=== PATIENT | male | born 1945 | race Caucasian/White ===

== ENCOUNTER 2016-02-26 12:19 | Emergency (ER) | payer MEDICARE, BC ==
[~2016-02-26 12:19] MED LIST: /FENT50PA TD; /GLYB5TA OR; ASPI1TAB PO; ATRO1OPD OD; BACT2OIN2 TOP; COLA100C2 PO; ELIQ2.5T PO; FLEC10TA PO; FLEXERIL PO; GABA300C3 PO; GLUC1000 OR; GLYB5TA PO; JARD1TAB PO; LISI10TA4 OR; LISI10TA4 PO; LOPR50TA PO; LYRI150C PO; MAXI0.1S4 OD; MELO15TA4 PO; METF1000 PO; PERC5TAB8 PO; SIMV20TA2 OR; SIMV20TA2 PO; VALA1TAB PO; VICT18IN SC; VIT D 2000 PO; VITA-121 PO; januvia PO
[2016-02-26 13:39] LABS: MEAN CORPUSCULAR HEMOGLOBIN 30.2 pg (27.0-33.0); RED CELL DISTRIBUTION WIDTH 12.4 % (11.5-14.5); WHITE BLOOD COUNT 7.8 K/mm3 (4.0-10.0)
[2016-02-26 13:53] LABS: ANION GAP 7 MEQ/L (8-16); BLOOD UREA NITROGEN 22 MG/DL (7-18); CALCIUM LEVEL 9.4 MG/DL (8.8-10.2); CARBON DIOXIDE LEVEL 30 MEQ/L (21-32); CHLORIDE LEVEL 104 MEQ/L (98-107); CREATININE FOR GFR 1.07 MG/DL (0.70-1.30); GLOMERULAR FILTRATION RATE > 60.0 (>49); GLUCOSE, FASTING 128 MG/DL (80-110); POTASSIUM SERUM 4.7 MEQ/L (3.5-5.1); SODIUM LEVEL 141 MEQ/L (136-145)
--- NOTE | 2016-02-26 14:25 | EDDOCDS ---
Physician Documentation [facility] Name: iVc Mckeon Age: 70 yrs Sex: Male : 1945 Arrival Date: 02/26/2016 Time: 12:19 Bed 21 Private MD: Swati Ratliff A Disposition: 02/25 14:03 I have independently interviewed and examined the patient, and I agree with the sd1 investigation, diagnosis and treatment plan as documented by the Resident. Disposition: 02/26/16 14:13 Discharged to Home/Self Care. Impression: Syncope and collapse - Vasovagal syncope. - Condition is Stable. - Discharge Instructions: Near-Syncope. - Medication Reconciliation, Local Pharmacy Hours form. - Follow up: Swati Ratliff; When: Call to arrange an appointment; Reason: Recheck today's complaints, Continuance of care. - Problem is new. - Symptoms have improved. Historical: - Allergies: no known allergies; - Home Meds: 1. aspirin 81 mg Oral tab 1 tab once daily (Last dose: 02/25/2016) 2. Eliquis oral 1 tab 2 times per day (Last dose: 02/26/2016) 3. glyburide 5 mg Oral tab 2.5 mg nightly (Last dose: 02/25/2016) 4. metformin 1,000 mg Oral tab 1 tab 2 times per day (Last dose: 02/26/2016) 5. Vitamin D Oral 1000 unit daily (Last dose: 02/26/2016) 6. Victoza 3-Alban 18mg/3ml subcutaneous pnij 0.3 mL once daily 7. simvastatin 40 mg Oral tab 1 tab once daily (Last dose: 02/26/2016) 8. Jardiance 10 mg oral tab 1 tab once daily (Last dose: 02/26/2016) - PMHx: atrial flutter; Diabetes - NIDDM: controlled; Hypercholesterolemia; Hypertension; - PSHx: right wrist surgery; Ablation, Cardiac; - Social history: Smoking status: Patient states former smoker of tobacco. No barriers to communication noted, The patient speaks fluent Estonian, Speaks appropriately for age. - Family history: Not pertinent. - : The pt / caregiver states he / she is on anticoagulants: Eliquis Home medication list is obtained from the patient. - Exposure Risk Screening:: None identified. Vital Signs: 12:29 BP 133 / 68; Pulse 61; Resp 18; Temp 97.3(O); Pulse Ox 96% on R/A; Weight 104.33 kg / ct3 230.01 lbs (R); Height 5 ft. 8 in. (172.72 cm) (R); Pain 0/10; 12:29 BP 124 / 85; Pulse 60; Resp 18; Temp 97.8; Pulse Ox 98% ; Pain 0/10; hs1 12:29 Body Mass Index 34.97 (104.33 kg, 172.72 cm) ct3 MDM: 12:32 ECG WITH READING ER PHYS+CARDIAG ordered. EDMS 13:15 IV Saline Lock ordered. bs6 13:16 CBC Ordered. EDMS 13:16 Basic Metabolic Profile Ordered. EDMS 13:57 Basic Metabolic Profile Reviewed. sd1 13:57 CBC Reviewed. sd1 14:01 ED course: 70 yo male with multiple comorbidities presented s/p near syncope with sd1 symptoms orf nausea and lightheadedness and warm sensation while euthenizing his cat patient denied chest pain, db, abdominal pain, reports has been in baseline state of health no associated neuro symptoms exam unremarkable d/w patient prolonged monitoring and cardiac rule out though lower suspicion - patient refuses - states would like to go home is at baseline feels well understands risks. Signatures: Dispatcher [employer] EDMS Kait Hinojosa MD MD sd1 Aure Young RN RN hs1 Thea Martinez, DO bs6 The chart was reviewed and I authenticate all verbal orders and agree with the evaluation and treatment provided.Corrections: (The following items were deleted from the chart) 12:46 12:34 ECG WITH READING ER PHYS+CARDIAG ordered. EDMS EDMS MTDD
--- NOTE | 2016-02-26 14:25 | EDDOCDS ---
Nurse's Notes [facility] Name: Vic Mckeon Age: 70 yrs Sex: Male : 1945 Arrival Date: 02/26/2016 Time: 12:19 Bed 21 Private MD: Swati Ratliff A Diagnosis: Syncope and collapse-Vasovagal syncope Presentation: 02/25 12:22 Presenting complaint: EMS states: syncopal episode after watching cat be euthanized. Pt hs1 diabetic and was told by [facility] to take glucose pill and EMS did finger stick 223 mg/dL. Pt states got all hot and flushed and felt overheated. Pt also states has happened before when overheated. Acute neurological deficits are not present. Patient denies the presence of acute pain prior to syncopal episode. The patient is not diaphoretic or experienced diaphoresis prior to the syncopal episode The patient denies shortness of breath. The patient denies recent surgery. Adult Sepsis Screening: The patient does not have new or worsening altered mentation. Patient's respiratory rate is less than 22. Systolic blood pressure is greater than 100. Patient has a qSOFA score of 0- Negative Sepsis Screen. Suicide/Homicide risk assessment- the patient denies having any suicidal and/or homicidal ideations and does not present with any other emotional, behavioral or mental health complaints. Status: Patient is not a assistant service manager or dependent. Transition of care: patient was not received from another setting of care. 12:22 Acuity: RONNI Level 3 hs1 12:22 Method Of Arrival: Ambulance hs1 Triage Assessment: 12:33 General: Appears in no apparent distress, Behavior is appropriate for age, cooperative. hs1 Pain: Denies pain. Neurological: Level of Consciousness is awake, alert, obeys commands, Oriented to person, place, time, Credit Collections Specialist are equal bilaterally Moves all extremities. Gait is steady, Speech is normal, Facial symmetry appears normal. Cardiovascular: Rhythm is sinus rhythm. Respiratory: Airway is patent Respiratory effort is even, unlabored, Respiratory pattern is regular, symmetrical. GI: Abdomen is flat, non- distended Denies nausea. : No deficits noted. Derm: Skin is pink, warm & dry. normal. Injury Description: No known injury. Historical: - Allergies: no known allergies; - Home Meds: 1. aspirin 81 mg Oral tab 1 tab once daily (Last dose: 02/25/2016) 2. Eliquis oral 1 tab 2 times per day (Last dose: 02/26/2016) 3. glyburide 5 mg Oral tab 2.5 mg nightly (Last dose: 02/25/2016) 4. metformin 1,000 mg Oral tab 1 tab 2 times per day (Last dose: 02/26/2016) 5. Vitamin D Oral 1000 unit daily (Last dose: 02/26/2016) 6. Victoza 3-Alban 18mg/3ml subcutaneous pnij 0.3 mL once daily 7. simvastatin 40 mg Oral tab 1 tab once daily (Last dose: 02/26/2016) 8. Jardiance 10 mg oral tab 1 tab once daily (Last dose: 02/26/2016) - PMHx: atrial flutter; Diabetes - NIDDM: controlled; Hypercholesterolemia; Hypertension; - PSHx: right wrist surgery; Ablation, Cardiac; - Social history: Smoking status: Patient states former smoker of tobacco. No barriers to communication noted, The patient speaks fluent Persian, Speaks appropriately for age. - Family history: Not pertinent. - : The pt / caregiver states he / she is on anticoagulants: Eliquis Home medication list is obtained from the patient. - Exposure Risk Screening:: None identified. Screenin:34 Screening information is obtained from the patient. Fall risk: No risks identified. hs1 Assistance ADL's: requires no assistance with activities of daily living. Abuse/DV Screen: The patient / caregiver reports he/she is: not in a situation that causes fear, pain or injury. Nutritional screening: No deficits noted. Advance Directives: There is no active DNR order. home support is adequate. Assessment: 13:17 General: Appears in no apparent distress, comfortable, Behavior is appropriate for age, hs1 cooperative. Neurological: Level of Consciousness is awake, alert, obeys commands, Oriented to person, place, time. Cardiovascular: Rhythm is sinus rhythm No ectopy. Chest pain is denied. Respiratory: Airway is patent Respiratory effort is even, unlabored, Respiratory pattern is regular, symmetrical. GI: No deficits noted. Vital Signs: 12:29 BP 133 / 68; Pulse 61; Resp 18; Temp 97.3(O); Pulse Ox 96% on R/A; Weight 104.33 kg ct3 (R); Height 5 ft. 8 in. (172.72 cm) (R); Pain 0/10; 12:29 BP 124 / 85; Pulse 60; Resp 18; Temp 97.8; Pulse Ox 98% ; Pain 0/10; hs1 12:29 Body Mass Index 34.97 (104.33 kg, 172.72 cm) ct3 Vitals: 14:23 Glucose Measurement D-stick done by EMS. hs1 14:24 Log In Time N/A - ambulance arrival. hs1 ED Course: 12:20 Patient visited by Donna Darden, Body Technician/Painter. lbd 12:20 Swati Ratliff is Private Physician. lbd 12:20 Patient moved to Waiting lbd 12:21 Patient moved to 21 lbd 12:25 Triage Initiated hs1 12:29 Patient has correct armband on for positive identification. Placed in gown. Bed in low ct3 position. Call light in reach. Side rails up X 1. athletic monitor on. Pulse ox on. NIBP on. 12:30 Patient visited by Dotty Logan PCA. ct3 12:39 EKG done. (by ED staff). Reviewed by Kait Hinojosa MD. ct3 12:58 Thea Martinez DO is PHCP. bs6 12:58 Kait Hinojosa MD is Attending Physician. bs6 13:02 Patient visited by Thea Martinez DO. bs6 13:02 Patient visited by Thea Martinez DO. bs6 13:20 Inserted saline lock: 20 gauge in left antecubital area and blood collected. The hs1 patient tolerated the procedure well. 13:31 Basic Metabolic Profile Sent. hs1 13:31 CBC Sent. hs1 13:37 Patient visited by Arue Young RN. hs1 14:13 Swati Ratliff is Referral Physician. bs6 14:23 Discontinued IV lock intact, bleeding controlled, pressure dressing applied, No hs1 redness/swelling at site. No procedures done that require assistance. 14:24 The patient / caregiver is instructed regarding the plan of care and ED course. hs1 Order Results: Lab Order: CBC; SPEC'M 02/26/16 13:26 Test: WHITE BLOOD COUNT; Value: 7.8; Range: 4.0-10.0; Units: K/mm3; Status: F Test: RED BLOOD COUNT; Value: 5.33; Range: 4.30-6.10; Units: M/mm3; Status: F Test: HEMOGLOBIN; Value: 16.1; Range: 14.0-18.0; Units: g/dl; Status: F Test: HEMATOCRIT; Value: 47.5; Range: 42.0-52.0; Units: %; Status: F Test: MEAN CORPUSCULAR VOLUME; Value: 89.0; Range: 80.0-96.0; Units: fl; Status: F Test: MEAN CORPUSCULAR HEMOGLOBIN; Value: 30.2; Range: 27.0-33.0; Units: pg; Status: F Test: MEAN CORPUSCULAR HGB CONC; Value: 34.0; Range: 32.0-36.5; Units: g/dl; Status: F Test: RED CELL DISTRIBUTION WIDTH; Value: 12.4; Range: 11.5-14.5; Units: %; Status: F Test: PLATELET COUNT, AUTOMATED; Value: 246; Range: 150-450; Units: k/mm3; Status: F Lab Order: Basic Metabolic Profile; [facility]' 02/26/16 13:26 Test: GLUCOSE, FASTING; Value: 128; Range: 80-110; Abnormal: Above high normal; Units: MG/DL; Status: F Test: BLOOD UREA NITROGEN; Value: 22; Range: 7-18; Abnormal: Above high normal; Units: MG/DL; Status: F Test: CREATININE FOR GFR; Value: 1.07; Range: 0.70-1.30; Units: MG/DL; Status: F Test: GLOMERULAR FILTRATION RATE; Value: > 60.0; Range: >49; Status: F Test: SODIUM LEVEL; Value: 141; Range: 136-145; Units: MEQ/L; Status: F Test: POTASSIUM SERUM; Value: 4.7; Range: 3.5-5.1; Units: MEQ/L; Status: F Test: CHLORIDE LEVEL; Value: 104; Range: 98-107; Units: MEQ/L; Status: F Test: CARBON DIOXIDE LEVEL; Value: 30; Range: 21-32; Units: MEQ/L; Status: F Test: ANION GAP; Value: 7; Range: 8-16; Abnormal: Below low normal; Units: MEQ/L; Status: F Test: CALCIUM LEVEL; Value: 9.4; Range: 8.8-10.2; Units: MG/DL; Status: F Test Note: ; Units are mL/min/1.73 m2 Chronic Kidney Disease Staging per NKF: Stage I & II GFR >=60 Normal to Mildly Decreased Stage III GFR 30-59 Moderately Decreased Stage IV GFR 15-29 Severely Decreased Stage V GFR <15 Very Little GFR Left ESRD GFR <15 on DOPE WEIGH OPERATOR Outcome: 14:13 Discharge ordered by Provider. bs6 14:23 Discharge Assessment: Patient awake, alert and oriented x 3. No cognitive and/or hs1 functional deficits noted. Patient verbalized understanding of disposition instructions. patient administered narcotics - no. The following High Risk Discharge criteria are identified: None. Discharged to home ambulatory. Condition: stable. Discharge instructions given to patient, Instructed on discharge instructions, follow up and referral plans. medication usage, Demonstrated understanding of instructions, medications, Pt was receptive of discharge instructions/ teaching. No special radiology studies were completed. Property sent home with patient. 14:24 Patient left the ED. hs1 Signatures: Donna Darden, Body Technician/Painter Unit lbd Aure Young RN RN hs1 Dotty Logan, REGISTERED NURSE FETAL REGISTERED NURSE FETAL ct3 Thea Martinez, DO bs6 MTDD
--- NOTE | 2016-02-27 19:40 | ECGEPIP ---
Stationary ECG Study [facility] - ED Test Date: 2016-02-26 Pat Name: MIAH HERNANDEZ Department: Room: - Gender: M Vice Chair: ct : 1945 Requested By: Kait Hinojosa Order Number: [id number] Reading MD: Kait Hinojosa Measurements Intervals [place] Rate: 62 P: 43 OK: 343 QRS: 37 QRSD: 95 T: 9 QT: 397 QTc: 404 Interpretive Statements SINUS RHYTHM WITH FIRST DEGREE AV BLOCK NSTTW ABNORMALITY Electronically Signed On 02-27-2016 19:40:16 EST by Kait Hinojosa
--- NOTE | 2016-02-28 15:25 | EDDOCDS ---
Physician Documentation [facility] Name: Vic Mckeon Age: 70 yrs Sex: Male : 1945 Arrival Date: 02/26/2016 Time: 12:19 Bed 21 Private MD: Swati Ratliff A Disposition: 02/25 14:03 I have independently interviewed and examined the patient, and I agree with the sd1 investigation, diagnosis and treatment plan as documented by the Resident. Disposition: 02/26/16 14:13 Discharged to Home/Self Care. Impression: Syncope and collapse - Vasovagal syncope. - Condition is Stable. - Discharge Instructions: Near-Syncope. - Medication Reconciliation, Local Pharmacy Hours form. - Follow up: Swati Ratliff; When: Call to arrange an appointment; Reason: Recheck today's complaints, Continuance of care. - Problem is new. - Symptoms have improved. Historical: - Allergies: no known allergies; - Home Meds: 1. aspirin 81 mg Oral tab 1 tab once daily (Last dose: 02/25/2016) 2. Eliquis oral 1 tab 2 times per day (Last dose: 02/26/2016) 3. glyburide 5 mg Oral tab 2.5 mg nightly (Last dose: 02/25/2016) 4. metformin 1,000 mg Oral tab 1 tab 2 times per day (Last dose: 02/26/2016) 5. Vitamin D Oral 1000 unit daily (Last dose: 02/26/2016) 6. Victoza 3-Alban 18mg/3ml subcutaneous pnij 0.3 mL once daily 7. simvastatin 40 mg Oral tab 1 tab once daily (Last dose: 02/26/2016) 8. Jardiance 10 mg oral tab 1 tab once daily (Last dose: 02/26/2016) - PMHx: atrial flutter; Diabetes - NIDDM: controlled; Hypercholesterolemia; Hypertension; - PSHx: right wrist surgery; Ablation, Cardiac; - Social history: Smoking status: Patient states former smoker of tobacco. No barriers to communication noted, The patient speaks fluent Montenegrin, Speaks appropriately for age. - Family history: Not pertinent. - : The pt / caregiver states he / she is on anticoagulants: Eliquis Home medication list is obtained from the patient. - Exposure Risk Screening:: None identified. Vital Signs: 12:29 BP 133 / 68; Pulse 61; Resp 18; Temp 97.3(O); Pulse Ox 96% on R/A; Weight 104.33 kg / ct3 230.01 lbs (R); Height 5 ft. 8 in. (172.72 cm) (R); Pain 0/10; 12:29 BP 124 / 85; Pulse 60; Resp 18; Temp 97.8; Pulse Ox 98% ; Pain 0/10; hs1 12:29 Body Mass Index 34.97 (104.33 kg, 172.72 cm) ct3 MDM: 12:32 ECG WITH READING ER PHYS+CARDIAG ordered. EDMS 13:15 IV Saline Lock ordered. bs6 13:16 CBC Ordered. EDMS 13:16 Basic Metabolic Profile Ordered. EDMS 13:57 Basic Metabolic Profile Reviewed. sd1 13:57 CBC Reviewed. sd1 14:01 ED course: 70 yo male with multiple comorbidities presented s/p near syncope with sd1 symptoms orf nausea and lightheadedness and warm sensation while euthenizing his cat patient denied chest pain, db, abdominal pain, reports has been in baseline state of health no associated neuro symptoms exam unremarkable d/w patient prolonged monitoring and cardiac rule out though lower suspicion - patient refuses - states would like to go home is at baseline feels well understands risks. 14:59 [facility] Payment Agreement was scanned into [email or web address] and attached to record. mm15 15:00 Financial registration complete. mm15 02/26 12:37 T-Sheet-- Draft Copy was scanned into [employer] [place] and attached to record. gb 12:37 ECG/EKG was scanned into [email or web address] and attached to record. gb Signatures: Dispatcher [employer] EDMS Kait Hinojosa MD MD sd1 Tahira Sandoval, Reg Reg gb Aure Young, EL RN hs1 Jennifer Vale mm15 Thea Martinez DO DO bs6 The chart was reviewed and I authenticate all verbal orders and agree with the evaluation and treatment provided.Corrections: (The following items were deleted from the chart) 02/25 12:46 12:34 ECG WITH READING ER PHYS+CARDIAG ordered. EDMS EDMS Attachments: 14:59 [facility] Payment Agreement mm15 02/26 12:37 T-Sheet-- Draft Copy gb 12:37 ECG/EKG gb Chart Complete MTDD
--- NOTE | 2016-02-28 15:25 | EDDOCDS ---
Nurse's Notes [facility] Name: Vic Mckeon Age: 70 yrs Sex: Male : 1945 Arrival Date: 02/26/2016 Time: 12:19 Bed 21 Private MD: Swati Ratliff A Diagnosis: Syncope and collapse-Vasovagal syncope Presentation: 02/25 12:22 Presenting complaint: EMS states: syncopal episode after watching cat be euthanized. Pt hs1 diabetic and was told by [facility] to take glucose pill and EMS did finger stick 223 mg/dL. Pt states got all hot and flushed and felt overheated. Pt also states has happened before when overheated. Acute neurological deficits are not present. Patient denies the presence of acute pain prior to syncopal episode. The patient is not diaphoretic or experienced diaphoresis prior to the syncopal episode The patient denies shortness of breath. The patient denies recent surgery. Adult Sepsis Screening: The patient does not have new or worsening altered mentation. Patient's respiratory rate is less than 22. Systolic blood pressure is greater than 100. Patient has a qSOFA score of 0- Negative Sepsis Screen. Suicide/Homicide risk assessment- the patient denies having any suicidal and/or homicidal ideations and does not present with any other emotional, behavioral or mental health complaints. Status: Patient is not a student services advisor or dependent. Transition of care: patient was not received from another setting of care. 12:22 Acuity: RONNI Level 3 hs1 12:22 Method Of Arrival: Ambulance hs1 Triage Assessment: 12:33 General: Appears in no apparent distress, Behavior is appropriate for age, cooperative. hs1 Pain: Denies pain. Neurological: Level of Consciousness is awake, alert, obeys commands, Oriented to person, place, time, Greenhouse Staff are equal bilaterally Moves all extremities. Gait is steady, Speech is normal, Facial symmetry appears normal. Cardiovascular: Rhythm is sinus rhythm. Respiratory: Airway is patent Respiratory effort is even, unlabored, Respiratory pattern is regular, symmetrical. GI: Abdomen is flat, non- distended Denies nausea. : No deficits noted. Derm: Skin is pink, warm & dry. normal. Injury Description: No known injury. Historical: - Allergies: no known allergies; - Home Meds: 1. aspirin 81 mg Oral tab 1 tab once daily (Last dose: 02/25/2016) 2. Eliquis oral 1 tab 2 times per day (Last dose: 02/26/2016) 3. glyburide 5 mg Oral tab 2.5 mg nightly (Last dose: 02/25/2016) 4. metformin 1,000 mg Oral tab 1 tab 2 times per day (Last dose: 02/26/2016) 5. Vitamin D Oral 1000 unit daily (Last dose: 02/26/2016) 6. Victoza 3-Alban 18mg/3ml subcutaneous pnij 0.3 mL once daily 7. simvastatin 40 mg Oral tab 1 tab once daily (Last dose: 02/26/2016) 8. Jardiance 10 mg oral tab 1 tab once daily (Last dose: 02/26/2016) - PMHx: atrial flutter; Diabetes - NIDDM: controlled; Hypercholesterolemia; Hypertension; - PSHx: right wrist surgery; Ablation, Cardiac; - Social history: Smoking status: Patient states former smoker of tobacco. No barriers to communication noted, The patient speaks fluent Hebrew, Speaks appropriately for age. - Family history: Not pertinent. - : The pt / caregiver states he / she is on anticoagulants: Eliquis Home medication list is obtained from the patient. - Exposure Risk Screening:: None identified. Screenin:34 Screening information is obtained from the patient. Fall risk: No risks identified. hs1 Assistance ADL's: requires no assistance with activities of daily living. Abuse/DV Screen: The patient / caregiver reports he/she is: not in a situation that causes fear, pain or injury. Nutritional screening: No deficits noted. Advance Directives: There is no active DNR order. home support is adequate. Assessment: 13:17 General: Appears in no apparent distress, comfortable, Behavior is appropriate for age, hs1 cooperative. Neurological: Level of Consciousness is awake, alert, obeys commands, Oriented to person, place, time. Cardiovascular: Rhythm is sinus rhythm No ectopy. Chest pain is denied. Respiratory: Airway is patent Respiratory effort is even, unlabored, Respiratory pattern is regular, symmetrical. GI: No deficits noted. Vital Signs: 12:29 BP 133 / 68; Pulse 61; Resp 18; Temp 97.3(O); Pulse Ox 96% on R/A; Weight 104.33 kg ct3 (R); Height 5 ft. 8 in. (172.72 cm) (R); Pain 0/10; 12:29 BP 124 / 85; Pulse 60; Resp 18; Temp 97.8; Pulse Ox 98% ; Pain 0/10; hs1 12:29 Body Mass Index 34.97 (104.33 kg, 172.72 cm) ct3 Vitals: 14:23 Glucose Measurement D-stick done by EMS. hs1 14:24 Log In Time N/A - ambulance arrival. hs1 ED Course: 12:20 Patient visited by Donna Darden, Prep Room Supervisor. lbd 12:20 Swati Ratliff is Private Physician. lbd 12:20 Patient moved to Waiting lbd 12:21 Patient moved to 21 lbd 12:25 Triage Initiated hs1 12:29 Patient has correct armband on for positive identification. Placed in gown. Bed in low ct3 position. Call light in reach. Side rails up X 1. school bus monitor on. Pulse ox on. NIBP on. 12:30 Patient visited by Dotty Logan PCA. ct3 12:39 EKG done. (by ED staff). Reviewed by Kait Hinojosa MD. ct3 12:58 Thea Martinez DO is PHCP. bs6 12:58 Kait Hinojosa MD is Attending Physician. bs6 13:02 Patient visited by Thea Martinez DO. bs6 13:02 Patient visited by Thea Martinez DO. bs6 13:20 Inserted saline lock: 20 gauge in left antecubital area and blood collected. The hs1 patient tolerated the procedure well. 13:31 Basic Metabolic Profile Sent. hs1 13:31 CBC Sent. hs1 13:37 Patient visited by Aure Young RN. hs1 14:13 Swati Ratliff is Referral Physician. bs6 14:23 Discontinued IV lock intact, bleeding controlled, pressure dressing applied, No hs1 redness/swelling at site. No procedures done that require assistance. 14:24 The patient / caregiver is instructed regarding the plan of care and ED course. hs1 14:59 [facility] [place] was scanned into [employer] and attached to record. mm15 02/26 12:37 T-Sheet-- Draft Copy was scanned into [employer] and attached to record. gb 12:37 ECG/EKG was scanned into [employer] and attached to record. gb 20:05 EKG-ADULT Returned. EDMS Order Results: Lab Order: CBC; [facility] 02/26/16 13:26 Test: WHITE BLOOD COUNT; Value: 7.8; Range: 4.0-10.0; Units: K/mm3; Status: F Test: RED BLOOD COUNT; Value: 5.33; Range: 4.30-6.10; Units: M/mm3; Status: F Test: HEMOGLOBIN; Value: 16.1; Range: 14.0-18.0; Units: g/dl; Status: F Test: HEMATOCRIT; Value: 47.5; Range: 42.0-52.0; Units: %; Status: F Test: MEAN CORPUSCULAR VOLUME; Value: 89.0; Range: 80.0-96.0; Units: fl; Status: F Test: MEAN CORPUSCULAR HEMOGLOBIN; Value: 30.2; Range: 27.0-33.0; Units: pg; Status: F Test: MEAN CORPUSCULAR HGB CONC; Value: 34.0; Range: 32.0-36.5; Units: g/dl; Status: F Test: RED CELL DISTRIBUTION WIDTH; Value: 12.4; Range: 11.5-14.5; Units: %; Status: F Test: PLATELET COUNT, AUTOMATED; Value: 246; Range: 150-450; Units: k/mm3; Status: F Lab Order: Basic Metabolic Profile; [facility] 02/26/16 13:26 Test: GLUCOSE, FASTING; Value: 128; Range: 80-110; Abnormal: Above high normal; Units: MG/DL; Status: F Test: BLOOD UREA NITROGEN; Value: 22; Range: 7-18; Abnormal: Above high normal; Units: MG/DL; Status: F Test: CREATININE FOR GFR; Value: 1.07; Range: 0.70-1.30; Units: MG/DL; Status: F Test: GLOMERULAR FILTRATION RATE; Value: > 60.0; Range: >49; Status: F Test: SODIUM LEVEL; Value: 141; Range: 136-145; Units: MEQ/L; Status: F Test: POTASSIUM SERUM; Value: 4.7; Range: 3.5-5.1; Units: MEQ/L; Status: F Test: CHLORIDE LEVEL; Value: 104; Range: 98-107; Units: MEQ/L; Status: F Test: CARBON DIOXIDE LEVEL; Value: 30; Range: 21-32; Units: MEQ/L; Status: F Test: ANION GAP; Value: 7; Range: 8-16; Abnormal: Below low normal; Units: MEQ/L; Status: F Test: CALCIUM LEVEL; Value: 9.4; Range: 8.8-10.2; Units: MG/DL; Status: F Test Note: ; Units are mL/min/1.73 m2 Chronic Kidney Disease Staging per NKF: Stage I & II GFR >=60 Normal to Mildly Decreased Stage III GFR 30-59 Moderately Decreased Stage IV GFR 15-29 Severely Decreased Stage V GFR <15 Very Little GFR Left ESRD GFR <15 on ROTARY DRIER Radiology Order: EKG-ADULT Test: EKG-ADULT REASON FOR EXAMINATION: Syncope; Stationary ECG Study; [facility] - ED; ; Test Date: 2016-02-26; Pat Name: VIC MCKEON Department:; Room: -; 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 bs6 14:23 Discharge Assessment: Patient awake, alert and oriented x 3. No cognitive and/or hs1 functional deficits noted. Patient verbalized understanding of disposition instructions. patient administered narcotics - no. The following High Risk Discharge criteria are identified: None. Discharged to home ambulatory. Condition: stable. Discharge instructions given to patient, Instructed on discharge instructions, follow up and referral plans. medication usage, Demonstrated understanding of instructions, medications, Pt was receptive of discharge instructions/ teaching. No special radiology studies were completed. Property sent home with patient. 14:24 Patient left the ED. hs1 Signatures: Dispatcher [employer] EDMS Donna Darden, Prep Room Supervisor Unit lbd Tahira Sandoval, Reg Reg Aure Taylor, RN RN hs1 Dotty Logan, MEDIA ANALYST MEDIA ANALYST ct3 Jennifer Vale mm15 Thea Martinez, DO [place] bs6 Chart Complete MTDD
--- NOTE | 2016-02-28 15:25 | EDDOCDS ---
Physician Documentation [facility] Name: Vic Mckeon Age: 70 yrs Sex: Male : 1945 Arrival Date: 02/26/2016 Time: 12:19 Bed 21 Private MD: Swati Ratliff A Disposition: 02/25 14:03 I have independently interviewed and examined the patient, and I agree with the sd1 investigation, diagnosis and treatment plan as documented by the Resident. Disposition: 02/26/16 14:13 Discharged to Home/Self Care. Impression: Syncope and collapse - Vasovagal syncope. - Condition is Stable. - Discharge Instructions: Near-Syncope. - Medication Reconciliation, Local Pharmacy Hours form. - Follow up: Swati Ratliff; When: Call to arrange an appointment; Reason: Recheck today's complaints, Continuance of care. - Problem is new. - Symptoms have improved. Historical: - Allergies: no known allergies; - Home Meds: 1. aspirin 81 mg Oral tab 1 tab once daily (Last dose: 02/25/2016) 2. Eliquis oral 1 tab 2 times per day (Last dose: 02/26/2016) 3. glyburide 5 mg Oral tab 2.5 mg nightly (Last dose: 02/25/2016) 4. metformin 1,000 mg Oral tab 1 tab 2 times per day (Last dose: 02/26/2016) 5. Vitamin D Oral 1000 unit daily (Last dose: 02/26/2016) 6. Victoza 3-Alban 18mg/3ml subcutaneous pnij 0.3 mL once daily 7. simvastatin 40 mg Oral tab 1 tab once daily (Last dose: 02/26/2016) 8. Jardiance 10 mg oral tab 1 tab once daily (Last dose: 02/26/2016) - PMHx: atrial flutter; Diabetes - NIDDM: controlled; Hypercholesterolemia; Hypertension; - PSHx: right wrist surgery; Ablation, Cardiac; - Social history: Smoking status: Patient states former smoker of tobacco. No barriers to communication noted, The patient speaks fluent Singaporean, Speaks appropriately for age. - Family history: Not pertinent. - : The pt / caregiver states he / she is on anticoagulants: Eliquis Home medication list is obtained from the patient. - Exposure Risk Screening:: None identified. Vital Signs: 12:29 BP 133 / 68; Pulse 61; Resp 18; Temp 97.3(O); Pulse Ox 96% on R/A; Weight 104.33 kg / ct3 230.01 lbs (R); Height 5 ft. 8 in. (172.72 cm) (R); Pain 0/10; 12:29 BP 124 / 85; Pulse 60; Resp 18; Temp 97.8; Pulse Ox 98% ; Pain 0/10; hs1 12:29 Body Mass Index 34.97 (104.33 kg, 172.72 cm) ct3 MDM: 12:32 ECG WITH READING ER PHYS+CARDIAG ordered. EDMS 13:15 IV Saline Lock ordered. bs6 13:16 CBC Ordered. EDMS 13:16 Basic Metabolic Profile Ordered. EDMS 13:57 Basic Metabolic Profile Reviewed. sd1 13:57 CBC Reviewed. sd1 14:01 ED course: 70 yo male with multiple comorbidities presented s/p near syncope with sd1 symptoms orf nausea and lightheadedness and warm sensation while euthenizing his cat patient denied chest pain, db, abdominal pain, reports has been in baseline state of health no associated neuro symptoms exam unremarkable d/w patient prolonged monitoring and cardiac rule out though lower suspicion - patient refuses - states would like to go home is at baseline feels well understands risks. 14:59 [facility] Payment Agreement was scanned into [employer] and attached to record. mm15 15:00 Financial registration complete. mm15 02/26 12:37 T-Sheet-- Draft Copy was scanned into [email or web address] and attached to record. gb 12:37 ECG/EKG was scanned into [employer] and attached to record. gb Signatures: Dispatcher [employer] EDMS Kait Hinojosa MD MD sd1 Tahira Sandoval, Reg Reg gb Aure Young, EL RN hs1 Jennifer Vale mm15 Thea Martinez DO DO bs6 The chart was reviewed and I authenticate all verbal orders and agree with the evaluation and treatment provided.Corrections: (The following items were deleted from the chart) 02/25 12:46 12:34 ECG WITH READING ER PHYS+CARDIAG ordered. EDMS EDMS Attachments: 14:59 [facility] Payment Agreement mm15 02/26 12:37 T-Sheet-- Draft Copy gb 12:37 ECG/EKG gb Chart Complete MTDD
== END 2016-02-26 14:24 | disposition home or self-care (01) ==
LOC: M ED 12:19
DX: R55 Syncope and collapse (principal); I48.92 Unspecified atrial flutter; E11.9 Type 2 diabetes mellitus without complications; E78.00 Pure hypercholesterolemia, unspecified; I10 Essential (primary) hypertension; Z79.82 Long term (current) use of aspirin; Z79.01 Long term (current) use of anticoagulants; Z79.899 Other long term (current) drug therapy; Z87.891 Personal history of nicotine dependence

== ENCOUNTER → 2016-06-02 | Outpatient (CLI) | payer MEDICARE, BC ==
[~2016-06-02] MED LIST changes: +GABA-282 PO; -GABA300C3 PO; +LOPR1TAB6 PO; -LOPR50TA PO
== END ==
LOC: M WUC 08:02
PROVIDERS: ATTEND Physician Assistant Medical
DX: E11.9 Type 2 diabetes mellitus without complications (principal); E78.2 Mixed hyperlipidemia

== ENCOUNTER → 2017-01-26 | Outpatient (CLI) | payer MEDICARE, BC ==
[~2017-01-26] MED LIST changes: +BACT2OIN10 TOP; -BACT2OIN2 TOP; -METF1000 PO; +METF10004 PO; -VALA1TAB PO; +VALA1TAB2 PO
[2017-01-26 20:01] LABS: MEAN CORPUSCULAR HEMOGLOBIN 29.7 pg (27.0-33.0); MEAN CORPUSCULAR HGB CONC 32.5 g/dl (32.0-36.5); MEAN CORPUSCULAR VOLUME 91.5 fl (80.0-96.0); PLATELET COUNT, AUTOMATED 273 10^3/uL (150-450); RED CELL DISTRIBUTION WIDTH 12.5 % (11.5-14.5)
== END ==
LOC: M WUC 11:13
PROVIDERS: ATTEND Nurse Practitioner Family
DX: I48.3 Typical atrial flutter (principal)

== ENCOUNTER → 2017-05-06 | Outpatient (CLI) | payer MEDICARE, BC ==
[2017-05-06 09:22] LABS: BASO # 0.1 10^3/uL (0.0-0.2); BASO % 0.7 % (0.0-1.0); EOS # 0.1 10^3/uL (0.0-0.50); EOS % 0.7 % (0.0-3.0); HEMATOCRIT 50.5 % (42.0-52.0); HEMOGLOBIN 16.7 g/dl (14.0-18.0); IMMATURE GRANULOCYTE % 0.6 % (0-3.0); LYMPH # 1.9 10^3/uL (1.5-4.5); MEAN CORPUSCULAR HEMOGLOBIN 29.1 pg (27.0-33.0); MEAN CORPUSCULAR HGB CONC 33.1 g/dl (32.0-36.5); MONO # 0.7 10^3/uL (0.0-0.8); MONO % 10.3 % (0.0-5.0); NEUTROPHILS # 4.4 10^3/uL (1.8-7.7); NEUTROPHILS % 60.7 % (36.0-66.0); PLATELET COUNT, AUTOMATED 228 10^3/uL (150-450); RED BLOOD COUNT 5.74 10^6/uL (4.30-6.10); RED CELL DISTRIBUTION WIDTH 12.5 % (11.5-14.5); WHITE BLOOD COUNT 7.2 10^3/uL (4.0-10.0)
[2017-05-06 09:43] LABS: ALBUMIN 4.1 GM/DL (3.2-5.2); ALBUMIN/GLOBULIN RATIO 1.32 (1.00-1.93); ALKALINE PHOSPHATASE 86 U/L (45-117); ALT/SGPT 23 U/L (12-78); ANION GAP 7 MEQ/L (8-16); AST/SGOT 12 U/L (7-37); BILIRUBIN,TOTAL 1.1 MG/DL (0.2-1.0); BLOOD UREA NITROGEN 19 MG/DL (7-18); CALCIUM LEVEL 8.9 MG/DL (8.8-10.2); CARBON DIOXIDE LEVEL 30 MEQ/L (21-32); CHLORIDE LEVEL 103 MEQ/L (98-107); CHOLESTEROL LEVEL 141 MG/DL (<200); CHOLESTEROL RISK RATIO 3.615 (<5); CREATININE FOR GFR 1.01 MG/DL (0.70-1.30); GLOMERULAR FILTRATION RATE > 60.0 (>42); GLUCOSE, FASTING 174 MG/DL (70-100); HDL CHOLESTEROL 39 MG/DL (>40); NON-HDL-C 102 MG/DL; POTASSIUM SERUM 4.8 MEQ/L (3.5-5.1); SODIUM LEVEL 140 MEQ/L (136-145); TOTAL PROTEIN 7.2 GM/DL (6.4-8.2); TRIGLYCERIDES LEVEL 250 MG/DL (<150)
== END ==
LOC: M WUC 08:10
DX: I48.3 Typical atrial flutter (principal)
CPT/HCPCS: 80053

== ENCOUNTER → 2017-07-06 | Outpatient (REF) | payer MEDICARE, BC ==
[2017-07-06 14:50] LABS: CREATININE, URINE 60.9 MG/DL; MALB URINE SIEMENS 12.9 MG/L; MAU/CREAT RATIO 21.1 MCG/MG (0.0-30.0)
== END ==
LOC: M LAB REF 12:48
DX: E11.69 Type 2 diabetes mellitus with other specified complication (principal)
CPT/HCPCS: 82043

== ENCOUNTER 2018-01-15 03:40 | Emergency (ER) | payer MEDICARE, BC ==
[2018-01-15] MEDS: ONDANSETRON 4MG/2ML VIAL (J2405) IV (04:25)
[2018-01-15] MEDS: methylPREDNISolone INJ 40 MG/1 ML VIAL (J2920) IV (04:25)
[2018-01-15] MEDS: METHOCARBAMOL 1,000 MG/10 ML VIAL (J2800) IV (04:27)
[2018-01-15] MEDS: MORPHINE 2 MG/ML 1ML SYRINGE (J2270) IV (04:27)
[2018-01-15] MEDS: OXYCODONE/APAP 5MG/325MG(BULK FOR ED) 1 TABLET PO (05:29)
== END 2018-01-15 05:42 | disposition home or self-care (01) ==
LOC: M ED 03:40
DX: S16.1XXA Strain of muscle, fascia and tendon at neck level, initial encounter (principal); X50.0XXA Overexertion from strenuous movement or load, initial encounter; Y92.330 Ice skating rink (indoor) (outdoor) as the place of occurrence of the external cause; Y93.82 Activity, spectator at an event; E11.9 Type 2 diabetes mellitus without complications; I48.92 Unspecified atrial flutter; Z79.899 Other long term (current) drug therapy; Z79.84 Long term (current) use of oral hypoglycemic drugs; Z79.01 Long term (current) use of anticoagulants
CPT/HCPCS: J2405

== ENCOUNTER → 2018-01-20 | Outpatient (CLI) | payer MEDICARE, BC | LOC: M RAD 08:47 | DX: Z12.2 Encounter for screening for malignant neoplasm of respiratory organs (principal); Z87.891 Personal history of nicotine dependence | CPT/HCPCS: G0297 ==

== ENCOUNTER → 2018-04-21 | Outpatient (CLI) | payer MEDICARE, BC ==
[~2018-04-21] MED LIST changes: -/FENT50PA TD; -/GLYB5TA OR; -ASPI1TAB PO; +ASPI81TA26 PO; +FENT1DIS15 TD; -GABA-282 PO; +GABA-843 PO; +GLYB-147 PO; +GLYB1TAB29 OR; -GLYB5TA PO; +MELO15TA28 PO; -MELO15TA4 PO; +PERC5TAB12 PO; +PRED20TA PO; +ROBA500T PO
[2018-04-21 09:16] LABS: BASO # 0.1 10^3/uL (0.0-0.2); BASO % 0.7 % (0.0-1.0); EOS # 0.1 10^3/uL (0.0-0.50); HEMATOCRIT 50.5 % (42.0-52.0); LYMPH # 2.2 10^3/uL (1.5-4.5); LYMPH % 26.6 % (24.0-44.0); MEAN CORPUSCULAR HEMOGLOBIN 30.1 pg (27.0-33.0); MEAN CORPUSCULAR HGB CONC 33.7 g/dl (32.0-36.5); MEAN CORPUSCULAR VOLUME 89.4 fl (80.0-96.0); MONO # 0.9 10^3/uL (0.0-0.8); MONO % 10.5 % (0.0-5.0); NEUTROPHILS # 5.1 10^3/uL (1.8-7.7); NEUTROPHILS % 60.4 % (36.0-66.0); PLATELET COUNT, AUTOMATED 234 10^3/uL (150-450); RED BLOOD COUNT 5.65 10^6/uL (4.30-6.10); WHITE BLOOD COUNT 8.4 10^3/uL (4.0-10.0)
[2018-04-21 09:42] LABS: ALBUMIN 4.1 GM/DL (3.2-5.2); ALT/SGPT 26 U/L (12-78); BILIRUBIN,TOTAL 0.9 MG/DL (0.2-1.0); BLOOD UREA NITROGEN 19 MG/DL (7-18); CALCIUM LEVEL 9.2 MG/DL (8.8-10.2); CARBON DIOXIDE LEVEL 30 MEQ/L (21-32); CHLORIDE LEVEL 102 MEQ/L (98-107); CHOLESTEROL LEVEL 161 MG/DL (<200); CHOLESTEROL RISK RATIO 4.128 (<5); CREATININE FOR GFR 0.94 MG/DL (0.70-1.30); GLOMERULAR FILTRATION RATE > 60.0 (>42); GLUCOSE, FASTING 171 MG/DL (70-100); HDL CHOLESTEROL 39 MG/DL (>40); LDL CHOLESTEROL 49 MG/DL (<100); NON-HDL-C 122 MG/DL; POTASSIUM SERUM 4.7 MEQ/L (3.5-5.1); SODIUM LEVEL 139 MEQ/L (136-145); TRIGLYCERIDES LEVEL 367 MG/DL (<150)
== END ==
LOC: M WUC 08:04
PROVIDERS: ATTEND Physician Assistant
DX: I48.3 Typical atrial flutter (principal)

== ENCOUNTER → 2018-05-21 | Outpatient (CLI) | payer MEDICARE, BC ==
[~2018-05-21] MED LIST changes: +/FENT50PA TD; +/GLYB5TA OR; +ASPI1TAB PO; -ASPI81TA26 PO; -FENT1DIS15 TD; -GLYB-147 PO; -GLYB1TAB29 OR; +GLYB5TA PO
[2018-05-21 13:58] LABS: ALBUMIN 4.3 GM/DL (3.2-5.2); BLOOD UREA NITROGEN 24 MG/DL (7-18); CALCIUM LEVEL 9.6 MG/DL (8.8-10.2); CARBON DIOXIDE LEVEL 29 MEQ/L (21-32); CHLORIDE LEVEL 102 MEQ/L (98-107); CREATININE FOR GFR 1.01 MG/DL (0.70-1.30); GLOMERULAR FILTRATION RATE > 60.0 (>42); GLUCOSE, FASTING 127 MG/DL (70-100); POTASSIUM SERUM 5.5 MEQ/L (3.5-5.1); SODIUM LEVEL 139 MEQ/L (136-145)
== END ==
LOC: M WUC 10:56
PROVIDERS: ATTEND Physician Assistant
DX: I10 Essential (primary) hypertension (principal)

== ENCOUNTER → 2018-06-22 | Outpatient (REF) | payer MEDICARE, BC ==
[~2018-06-22] MED LIST changes: -/FENT50PA TD; -/GLYB5TA OR; -ASPI1TAB PO; +ASPI81TA26 PO; +FENT1DIS15 TD; +GLYB-147 PO; +GLYB1TAB29 OR; -GLYB5TA PO
[2018-06-22 13:35] LABS: CREATININE, URINE 38.8 MG/DL; MALB URINE SIEMENS 14.6 MG/L; MAU/CREAT RATIO 37.6 MCG/MG (0.0-30.0)
== END ==
LOC: M LAB REF 12:23
PROVIDERS: ATTEND Nurse Practitioner Family
DX: E11.9 Type 2 diabetes mellitus without complications (principal)

== ENCOUNTER 2018-08-31 20:03 | Emergency (ER) | payer MEDICARE, BC ==
[~2018-08-31] VITALS: Ht 172.7 cm; Wt 107.3 kg
[2018-08-31] MEDS ORDERED: methylPREDNISolone INJ 125 MG/2 ML VIAL (J2930) IM ONE (22:15)
[2018-08-31] MEDS ORDERED: ACETAMINOPHEN 500 MG TAB PO ONE (22:15)
[2018-08-31] MEDS ORDERED: LIDOCAINE 5% (LIDODERM) PATCH TD ONE (22:15)
[2018-08-31] MEDS ORDERED: ROBA500T PO (22:26)
[2018-08-31 22:44] VITALS: BP 146/76
[2018-09-01] MEDS ORDERED: **NOTE PATIENT COMMENT** MISC XX SCH (21:00)
== END 2018-08-31 22:52 | disposition home or self-care (01) ==
LOC: M ED 20:03
DX: S39.012A Strain of muscle, fascia and tendon of lower back, initial encounter (principal); X50.9XXA Other and unspecified overexertion or strenuous movements or postures, initial encounter; Y92.89 Other specified places as the place of occurrence of the external cause; E11.9 Type 2 diabetes mellitus without complications; I10 Essential (primary) hypertension; I48.92 Unspecified atrial flutter; Z79.899 Other long term (current) drug therapy; Z79.84 Long term (current) use of oral hypoglycemic drugs; Z79.82 Long term (current) use of aspirin; Z79.01 Long term (current) use of anticoagulants; Z87.891 Personal history of nicotine dependence
CPT/HCPCS: 96372; 99283; J2930

== ENCOUNTER 2018-10-27 11:02 | Day surgery (SDC) | payer MEDICARE, BC ==
[~2018-10-27] VITALS: Ht 172.7 cm; Wt 105.1 kg
[~2018-10-27 11:02] MED LIST changes: +AMLO10TA PO; +GLYB5TA PO; +LIDOCAINE 2% INJ 100 MG/5 ML SDV (FOR ANES.) As Ordered ONE; +NS 1,000 ML IV ONE; +PROPOFOL 200 MG/20 ML VIAL As Ordered ONE; +TRUL10IN SC; +VITA-122 PO
[2018-10-27] MEDS ORDERED: PROPOFOL 200 MG/20 ML VIAL As Ordered ONE ×2 (13:13→14:38)
--- NOTE | 2018-10-27 13:54 | ROOR ---
Patient Name: Vic Mckeon Procedure Date: 10/27/2018 12:44 PM Date of : 1945 Age: 73 Room: [facility] Gender: Male Note Status: Finalized Procedure: Colonoscopy Indications: Screening for colorectal malignant neoplasm, Last colonoscopy 10 years ago Providers: Eduardo Bernstein MD Referring MD: Swati Ratliff MD Requesting Provider: Medicines: Monitored Anesthesia Care Complications: No immediate complications. Procedure: Pre-Anesthesia Assessment: - Prior to the procedure, a History and Physical was performed, and patient medications and allergies were reviewed. The patient is competent. The risks and benefits of the procedure and the sedation options and risks were discussed with the patient. All questions were answered and informed consent was obtained. Patient identification and proposed procedure were verified by the physician, the nurse and the anesthesiologist in the procedure room. Mental Status Examination: alert and oriented. Airway Examination: normal oropharyngeal airway and neck mobility. CV Examination: regular rate and rhythm. Prophylactic Antibiotics: The patient does not require prophylactic antibiotics. Prior Anticoagulants: The patient has taken no previous anticoagulant or antiplatelet agents. ASA Grade Assessment: II - A patient with mild systemic disease. After reviewing the risks and benefits, the patient was deemed in satisfactory condition to undergo the procedure. The anesthesia plan was to use monitored anesthesia care (MAC). Immediately prior to administration of medications, the patient was re-assessed for adequacy to receive sedatives. The heart rate, respiratory rate, oxygen saturations, blood pressure, adequacy of pulmonary ventilation, and response to care were monitored throughout the procedure. The physical status of the patient was re-assessed after the procedure. The Colonoscope was introduced through the anus and advanced to the cecum, identified by appendiceal orifice and ileocecal valve. The colonoscopy was performed without difficulty. The patient tolerated the procedure well. The quality of the bowel preparation was excellent. Findings: The perianal and digital rectal examinations were normal. Two sessile polyps were found in the ascending colon. The polyps were 5 to 8 mm in size. These polyps were removed with a hot snare. Resection and retrieval were complete. The pathology specimen was placed into Bottle Number 1. Estimated blood loss: none. Multiple medium-mouthed diverticula were found in the sigmoid colon and distal descending colon. Impression: - Two 5 to 8 mm polyps in the ascending colon, removed with a hot snare. Resected and retrieved. - Diverticulosis in the sigmoid colon and in the distal descending colon. Recommendation: - Discharge patient to home. - Resume previous diet. - If the pathology report reveals adenomatous tissue, then repeat the colonoscopy for surveillance in 3 years. Eduardo Bernstein MD Eduardo Bernstein MD 10/27/2018 1:53:45 PM Electronically signed by Eduardo Bernstein MD Number of Addenda: 0 Note Initiated On: 10/27/2018 12:44 PM Estimated Blood Loss: Estimated blood loss: none.
[2018-10-27 14:05] VITALS: BP 144/67
== END 2018-10-27 14:06 | disposition home or self-care (01) ==
LOC: M OPP 11:02
PROVIDERS: ATTEND Surgery
DX: Z12.11 Encounter for screening for malignant neoplasm of colon (principal); D12.2 Benign neoplasm of ascending colon; K57.30 Diverticulosis of large intestine without perforation or abscess without bleeding; Z79.82 Long term (current) use of aspirin; Z79.84 Long term (current) use of oral hypoglycemic drugs; Z79.899 Other long term (current) drug therapy; Z87.891 Personal history of nicotine dependence

== ENCOUNTER → 2019-01-24 | Outpatient (CLI) | payer MEDICARE, BC ==
[~2019-01-24] MED LIST changes: -LIDOCAINE 2% INJ 100 MG/5 ML SDV (FOR ANES.) As Ordered ONE; -NS 1,000 ML IV ONE; -PROPOFOL 200 MG/20 ML VIAL As Ordered ONE; -SIMV20TA2 PO; +SIMV20TA22 PO
--- NOTE | 2019-01-24 09:16 | REP ---
Clinical: Lung screening. History smoking. Comparison: 01/20/2018, 12/25/2015 Technique: Axial low-dose noncontrast images from the thoracic inlet to the upper abdomen using lung screening technique. Findings: The lung hernandez are well-aerated. No consolidation, significant nodule or mass lesion is appreciated. No pleural effusion/reaction or pneumothorax. Tracheobronchial tree is patent. Mediastinum demonstrates mild atherosclerotic changes of the coronary arteries without cardiomegaly. Impression: Lung-RADS category I. No nodule or suspicious abnormality. Management recommendations include annual low-dose CT evaluation. Electronically Signed by Jass Pineda MD 01/24/2019 09:08 A
== END ==
LOC: M RAD 08:53
PROVIDERS: ATTEND Family Medicine
DX: Z87.891 Personal history of nicotine dependence (principal)

== ENCOUNTER → 2019-07-11 | Outpatient (CLI) | payer MEDICARE, BC ==
[~2019-07-11] MED LIST changes: -VALA1TAB2 PO; +VALA1TAB5 PO
[2019-07-11 10:51] LABS: ALBUMIN 4.1 GM/DL (3.2-5.2); ALT/SGPT 32 U/L (12-78); BILIRUBIN,TOTAL 1.2 MG/DL (0.2-1.0); BLOOD UREA NITROGEN 24 MG/DL (7-18); CALCIUM LEVEL 9.3 MG/DL (8.8-10.2); CARBON DIOXIDE LEVEL 33 MEQ/L (21-32); CHLORIDE LEVEL 100 MEQ/L (98-107); CHOLESTEROL LEVEL 124 MG/DL (<200); CHOLESTEROL RISK RATIO 2.952 (<5); CREATININE FOR GFR 0.95 MG/DL (0.70-1.30); GLOMERULAR FILTRATION RATE > 60.0 (>42); GLUCOSE, FASTING 172 MG/DL (70-100); HDL CHOLESTEROL 42 MG/DL (>40); LDL CHOLESTEROL 36 MG/DL (<100); NON-HDL-C 82 MG/DL; POTASSIUM SERUM 4.3 MEQ/L (3.5-5.1); SODIUM LEVEL 138 MEQ/L (136-145); TOTAL PROTEIN 7.3 GM/DL (6.4-8.2); TRIGLYCERIDES LEVEL 228 MG/DL (<150)
== END ==
LOC: M WUC 08:04
PROVIDERS: ATTEND Nurse Practitioner Family
DX: E78.2 Mixed hyperlipidemia (principal)

== ENCOUNTER → 2019-07-25 | Outpatient (REF) | payer MEDICARE, BC ==
[2019-07-25 16:06] LABS: CREATININE, URINE 42.8 MG/DL; MALB URINE SIEMENS 9.1 MG/L; MAU/CREAT RATIO 21.2 MCG/MG (0.0-30.0)
== END ==
LOC: M LAB REF 14:59
PROVIDERS: ATTEND Nurse Practitioner Family
DX: E11.9 Type 2 diabetes mellitus without complications (principal)

== ENCOUNTER → 2019-11-25 | Outpatient (CLI) | payer MEDICARE, BC ==
[2019-11-25 17:18] LABS: CREATININE, URINE 76.4 MG/DL; MALB URINE SIEMENS 16.5 MG/L; MAU/CREAT RATIO 21.5 MCG/MG (0.0-30.0)
== END ==
LOC: M WUC 12:41
PROVIDERS: ATTEND Nurse Practitioner Family
DX: E11.9 Type 2 diabetes mellitus without complications (principal)

== ENCOUNTER → 2019-11-28 | Outpatient (CLI) | payer MEDICARE, BC ==
[2019-11-28 10:05] LABS: BASO # 0.1 10^3/uL (0.0-0.2); BASO % 1.2 % (0.0-1.0); EOS # 0.1 10^3/uL (0.0-0.5); HEMATOCRIT 48.9 % (42.0-52.0); HEMOGLOBIN 16.2 g/dl (13.5-17.5); LYMPH # 2.2 10^3/uL (1.5-5.0); LYMPH % 28.1 % (24.0-44.0); MEAN CORPUSCULAR HEMOGLOBIN 28.8 pg (27.0-33.0); MEAN CORPUSCULAR HGB CONC 33.1 g/dl (32.0-36.5); MEAN CORPUSCULAR VOLUME 86.9 fl (80.0-96.0); MONO # 0.7 10^3/uL (0.0-0.8); MONO % 8.9 % (0.0-5.0); NEUTROPHILS # 4.7 10^3/uL (1.5-8.5); NEUTROPHILS % 60.3 % (36.0-66.0); PLATELET COUNT, AUTOMATED 246 10^3/uL (150-450); RED BLOOD COUNT 5.63 10^6/uL (4.30-6.10); WHITE BLOOD COUNT 7.8 10^3/uL (4.0-10.0)
[2019-11-28 10:26] LABS: APPEARANCE, URINE CLEAR (CLEAR); BACTERIA, URINE AUTO NEGATIVE (NEGATIVE); BILIRUBIN, URINE AUTO NEGATIVE (NEGATIVE); BLOOD, URINE BLOOD NEGATIVE (NEGATIVE); COLOR, URINE YELLOW (YELLOW); GLUCOSE, URINE (UA) AUTO 3+ mg/dL (NEGATIVE); KETONE, URINE AUTO NEGATIVE (NEGATIVE); LEUKOCYTE ESTERASE, URINE AUTO NEGATIVE (NEGATIVE); NITRITE, URINE AUTO NEGATIVE (NEGATIVE); PROTEIN, URINE AUTO NEGATIVE (NEGATIVE); RBC, URINE AUTO 3 /HPF (0-3); SPECIFIC GRAVITY URINE AUTO 1.024 (1.002-1.035); SQUAMOUS EPITHELIAL CELL UR AU 0 /HPF (0-6); UROBILINOGEN, URINE AUTO 0.2 mg/dL (0.0-2.0); WBC, URINE AUTO 0 /HPF (0-3)
[2019-11-28 10:34] LABS: ALBUMIN 3.9 GM/DL (3.2-5.2); ALT/SGPT 28 U/L (12-78); BILIRUBIN,TOTAL 1.1 MG/DL (0.2-1.0); BLOOD UREA NITROGEN 16 MG/DL (7-18); CARBON DIOXIDE LEVEL 30 MEQ/L (21-32); CHLORIDE LEVEL 102 MEQ/L (98-107); CHOLESTEROL LEVEL 111 MG/DL (<200); CHOLESTEROL RISK RATIO 2.581 (<5); CREATININE FOR GFR 0.97 MG/DL (0.70-1.30); GLOMERULAR FILTRATION RATE > 60.0 (>42); GLUCOSE, FASTING 183 MG/DL (70-100); HDL CHOLESTEROL 43 MG/DL (>40); LDL CHOLESTEROL 32 MG/DL (<100); NON-HDL-C 68 MG/DL; SODIUM LEVEL 138 MEQ/L (136-145); TOTAL PROTEIN 7.2 GM/DL (6.4-8.2); TRIGLYCERIDES LEVEL 178 MG/DL (<150)
[2019-11-28 10:45] LABS: CREATININE, URINE 63.2 MG/DL; HEMOGLOBIN A1c 7.4 %; MALB URINE SIEMENS 11.1 MG/L; MAU/CREAT RATIO 17.5 MCG/MG (0.0-30.0)
== END ==
LOC: M WUC 08:13
PROVIDERS: ATTEND Nurse Practitioner Family
DX: I11.9 Hypertensive heart disease without heart failure (principal); E78.2 Mixed hyperlipidemia; E11.69 Type 2 diabetes mellitus with other specified complication

== ENCOUNTER → 2020-02-13 | Outpatient (CLI) | payer MEDICARE, BC ==
--- NOTE | 2020-02-13 10:17 | REP ---
INDICATION: LUNG SCREENING COMPARISON: 01/24/2019, 12/25/2015 TECHNIQUE: Axial noncontrast images from the thoracic inlet to the upper abdomen using low-dose lung screening technique (LDCT). FINDINGS: Bilateral lung hernandez are well aerated and clear. No suspicious nodule or mass lesion. No consolidation, effusion, or pneumothorax. Tracheobronchial tree is patent. Limited evaluation of the mediastinum demonstrates atherosclerotic changes to the thoracic aorta and coronary arteries. IMPRESSION: Lung-RADS category 1. No suspicious nodule or mass lesion. Management recommendations include annual low-dose CT surveillance. <Electronically signed by Jass Pineda > 02/13/20 [id number]
== END ==
LOC: M RAD 09:30
PROVIDERS: ATTEND Family Medicine
DX: Z12.2 Encounter for screening for malignant neoplasm of respiratory organs (principal); Z87.891 Personal history of nicotine dependence

== ENCOUNTER → 2020-05-13 | Outpatient (CLI) | payer SELFPAY ==
[~2020-05-13] MED LIST changes: +GABA-282 PO; -GABA-843 PO; -GLYB5TA PO; +GLYB5TAB6 PO; +LISI10TA22 PO; -LISI10TA4 PO
== END ==
LOC: M LABSMTC 10:53
PROVIDERS: ATTEND Pediatrics
DX: Z20.822 Contact with and (suspected) exposure to COVID-19 (principal)

== ENCOUNTER → 2020-10-25 | Outpatient (CLI) | payer MEDICARE, BC ==
[~2020-10-25] MED LIST changes: +FLEC100T27 PO; -FLEC10TA PO
[2020-10-25 10:38] LABS: BLOOD UREA NITROGEN 16 MG/DL (7-18); CALCIUM LEVEL 9.1 MG/DL (8.8-10.2); CARBON DIOXIDE LEVEL 30 MEQ/L (21-32); CHLORIDE LEVEL 102 MEQ/L (98-107); CREATININE FOR GFR 0.98 MG/DL (0.70-1.30); GLOMERULAR FILTRATION RATE > 60.0 (>42); GLUCOSE, FASTING 165 MG/DL (70-100); POTASSIUM SERUM 4.3 MEQ/L (3.5-5.1); SODIUM LEVEL 137 MEQ/L (136-145)
== END ==
LOC: M WUC 08:08
PROVIDERS: ATTEND Nurse Practitioner Family
DX: E11.9 Type 2 diabetes mellitus without complications (principal)

== ENCOUNTER → 2020-10-25 | Outpatient (CLI) | payer MEDICARE, BC ==
[2020-10-25 10:45] LABS: BLOOD UREA NITROGEN 17 MG/DL (7-18); CALCIUM LEVEL 8.8 MG/DL (8.8-10.2); CARBON DIOXIDE LEVEL 29 MEQ/L (21-32); CHLORIDE LEVEL 101 MEQ/L (98-107); CHOLESTEROL LEVEL 109 MG/DL (<200); CHOLESTEROL RISK RATIO 2.534 (<5); CREATININE FOR GFR 1.04 MG/DL (0.70-1.30); GLOMERULAR FILTRATION RATE > 60.0 (>42); GLUCOSE, FASTING 171 MG/DL (70-100); HDL CHOLESTEROL 43 MG/DL (>40); LDL CHOLESTEROL 35 MG/DL (<100); NON-HDL-C 66 MG/DL; POTASSIUM SERUM 4.2 MEQ/L (3.5-5.1); SODIUM LEVEL 136 MEQ/L (136-145); TRIGLYCERIDES LEVEL 154 MG/DL (<150)
== END ==
LOC: M WUC 08:10
PROVIDERS: ATTEND Physician Assistant
DX: E78.2 Mixed hyperlipidemia (principal); E11.9 Type 2 diabetes mellitus without complications

== ENCOUNTER → 2020-11-15 | Outpatient (REF) | payer MEDICARE, BC ==
[2020-11-15 18:37] LABS: MAU/CREAT RATIO 60.9 MCG/MG (0.0-30.0)
== END ==
LOC: M LAB REF 17:11
PROVIDERS: ATTEND Nurse Practitioner Family
DX: E11.9 Type 2 diabetes mellitus without complications (principal)

== ENCOUNTER → 2021-04-03 | Outpatient (CLI) | payer MEDICARE, BC | LOC: M RAD 08:53 | PROVIDERS: ATTEND Family Medicine | DX: Z12.2 Encounter for screening for malignant neoplasm of respiratory organs (principal); Z87.891 Personal history of nicotine dependence; N28.1 Cyst of kidney, acquired ==

== ENCOUNTER → 2021-04-16 | Outpatient (CLI) | payer MEDICARE, BC | LOC: M RAD 10:51 | PROVIDERS: ATTEND Family Medicine | DX: N28.1 Cyst of kidney, acquired (principal) ==

== ENCOUNTER 2021-06-27 07:37 | Emergency (ER) | payer MEDICARE, BC ==
[~2021-06-27] VITALS: Ht 172.7 cm; Wt 100.9 kg
[2021-06-27 09:01] LABS: HEMATOCRIT 50.7 % (42.0-52.0); HEMOGLOBIN 17.5 g/dl (13.5-17.5); MEAN CORPUSCULAR HEMOGLOBIN 29.6 pg (27.0-33.0); MEAN CORPUSCULAR HGB CONC 34.5 g/dl (32.0-36.5); MEAN CORPUSCULAR VOLUME 85.6 fl (80.0-96.0); PLATELET COUNT, AUTOMATED 272 10^3/uL (150-450); RED BLOOD COUNT 5.92 10^6/uL (4.30-6.10); WHITE BLOOD COUNT 7.5 10^3/uL (4.0-10.0)
[2021-06-27 09:03] LABS: INR 1.14
[2021-06-27 09:34] LABS: ALBUMIN 4.1 GM/DL (3.2-5.2); ALT/SGPT 23 U/L (12-78); BILIRUBIN,TOTAL 1.4 MG/DL (0.2-1.0); BLOOD UREA NITROGEN 22 MG/DL (7-18); CALCIUM LEVEL 9.9 MG/DL (8.8-10.2); CARBON DIOXIDE LEVEL 31 MEQ/L (21-32); CHLORIDE LEVEL 98 MEQ/L (98-107); CREATININE FOR GFR 1.16 MG/DL (0.70-1.30); GLOMERULAR FILTRATION RATE > 60.0 (>42); GLUCOSE, FASTING 239 MG/DL (70-100); POTASSIUM SERUM 3.7 MEQ/L (3.5-5.1); SODIUM LEVEL 137 MEQ/L (136-145); TOTAL PROTEIN 7.8 GM/DL (6.4-8.2)
[2021-06-27 11:24] VITALS: BP 113/55
== END 2021-06-27 11:32 | disposition home or self-care (01) ==
LOC: M ED 07:37
DX: R31.9 Hematuria, unspecified (principal); E11.9 Type 2 diabetes mellitus without complications; Z86.79 Personal history of other diseases of the circulatory system; Z87.891 Personal history of nicotine dependence; Z79.01 Long term (current) use of anticoagulants; Z79.4 Long term (current) use of insulin; Z79.899 Other long term (current) drug therapy

== ENCOUNTER → 2021-07-03 | Outpatient (REF) | payer MEDICARE, BC ==
[2021-07-03 17:45] LABS: APPEARANCE, URINE CLEAR (CLEAR); BACTERIA, URINE AUTO NEGATIVE (NEGATIVE); BILIRUBIN, URINE AUTO NEGATIVE (NEGATIVE); BLOOD, URINE BLOOD NEGATIVE (NEGATIVE); COLOR, URINE YELLOW (YELLOW); GLUCOSE, URINE (UA) AUTO 3+ mg/dL (NEGATIVE); KETONE, URINE AUTO NEGATIVE (NEGATIVE); LEUKOCYTE ESTERASE, URINE AUTO NEGATIVE (NEGATIVE); MUCUS, URINE SMALL (NEGATIVE); NITRITE, URINE AUTO NEGATIVE (NEGATIVE); PROTEIN, URINE AUTO NEGATIVE (NEGATIVE); RBC, URINE AUTO 0 /HPF (0-3); SPECIFIC GRAVITY URINE AUTO 1.029 (1.002-1.035); SQUAMOUS EPITHELIAL CELL UR AU 0 /HPF (0-6); UROBILINOGEN, URINE AUTO 0.2 mg/dL (0.0-2.0); WBC, URINE AUTO 0 /HPF (0-3)
== END ==
LOC: M SMT 16:57
PROVIDERS: ATTEND Nurse Practitioner Women's Health
DX: R31.0 Gross hematuria (principal)
CPT/HCPCS: 81001; 87086; G0463

== ENCOUNTER → 2021-07-08 | Outpatient (CLI) | payer MEDICARE, BC ==
[2021-07-08 11:58] LABS: BLOOD UREA NITROGEN 19 MG/DL (7-18); CALCIUM LEVEL 9.5 MG/DL (8.8-10.2); CARBON DIOXIDE LEVEL 29 MEQ/L (21-32); CHLORIDE LEVEL 100 MEQ/L (98-107); CREATININE FOR GFR 1.09 MG/DL (0.70-1.30); GLOMERULAR FILTRATION RATE > 60.0 (>42); GLUCOSE, FASTING 264 MG/DL (70-100); MAGNESIUM LEVEL 2.2 MG/DL (1.8-2.4); POTASSIUM SERUM 3.7 MEQ/L (3.5-5.1); SODIUM LEVEL 138 MEQ/L (136-145)
== END ==
LOC: M WUC 08:30
PROVIDERS: ATTEND Physician Assistant
DX: I10 Essential (primary) hypertension (principal)

== ENCOUNTER → 2021-07-08 | Outpatient (CLI) | payer MEDICARE, BC ==
[2021-07-08 11:51] LABS: ALBUMIN 3.9 GM/DL (3.2-5.2); ALT/SGPT 21 U/L (12-78); BILIRUBIN,TOTAL 1.3 MG/DL (0.2-1.0); BLOOD UREA NITROGEN 19 MG/DL (7-18); CALCIUM LEVEL 8.9 MG/DL (8.8-10.2); CARBON DIOXIDE LEVEL 30 MEQ/L (21-32); CHLORIDE LEVEL 99 MEQ/L (98-107); CHOLESTEROL LEVEL 108 MG/DL (<200); CHOLESTEROL RISK RATIO 2.511 (<5); CREATININE FOR GFR 1.16 MG/DL (0.70-1.30); GLOMERULAR FILTRATION RATE > 60.0 (>42); GLUCOSE, FASTING 266 MG/DL (70-100); HDL CHOLESTEROL 43 MG/DL (>40); LDL CHOLESTEROL 26 MG/DL (<100); NON-HDL-C 65 MG/DL; POTASSIUM SERUM 3.7 MEQ/L (3.5-5.1); SODIUM LEVEL 135 MEQ/L (136-145); TOTAL PROTEIN 7.1 GM/DL (6.4-8.2); TRIGLYCERIDES LEVEL 194 MG/DL (<150)
[2021-07-08 11:59] LABS: HEMOGLOBIN A1c 7.5 %
[2021-07-08 12:09] LABS: CREATININE, URINE 51.9 MG/DL; MAU/CREAT RATIO 19.2 MCG/MG (0.0-30.0)
== END ==
LOC: M WUC 08:32
PROVIDERS: ATTEND Nurse Practitioner Family
DX: E11.69 Type 2 diabetes mellitus with other specified complication (principal); I10 Essential (primary) hypertension; Z12.5 Encounter for screening for malignant neoplasm of prostate; Z79.899 Other long term (current) drug therapy
CPT/HCPCS: 36415; 80048; 80053; 80061; 82043; 83036; 83735; G0103

== ENCOUNTER → 2021-07-08 | Outpatient (CLI) | payer MEDICARE, BC | LOC: M WUC 08:35 | PROVIDERS: ATTEND Nurse Practitioner Women's Health | DX: Z12.5 Encounter for screening for malignant neoplasm of prostate (principal) ==

== ENCOUNTER → 2021-07-26 | Outpatient (REF) | payer MEDICARE, BC ==
[2021-07-26 19:40] LABS: APPEARANCE, URINE CLEAR (CLEAR); BACTERIA, URINE AUTO NEGATIVE (NEGATIVE); BILIRUBIN, URINE AUTO NEGATIVE (NEGATIVE); BLOOD, URINE BLOOD NEGATIVE (NEGATIVE); COLOR, URINE YELLOW (YELLOW); GLUCOSE, URINE (UA) AUTO 3+ mg/dL (NEGATIVE); KETONE, URINE AUTO NEGATIVE (NEGATIVE); LEUKOCYTE ESTERASE, URINE AUTO NEGATIVE (NEGATIVE); NITRITE, URINE AUTO NEGATIVE (NEGATIVE); PROTEIN, URINE AUTO NEGATIVE (NEGATIVE); RBC, URINE AUTO 0 /HPF (0-3); SPECIFIC GRAVITY URINE AUTO 1.025 (1.002-1.035); SQUAMOUS EPITHELIAL CELL UR AU 0 /HPF (0-6); UROBILINOGEN, URINE AUTO 0.2 mg/dL (0.0-2.0); WBC, URINE AUTO 0 /HPF (0-3)
== END ==
LOC: M SMT 16:40
PROVIDERS: ATTEND Urology
DX: N48.89 Other specified disorders of penis (principal)

== ENCOUNTER → 2021-10-31 | Outpatient (CLI) | payer MEDICARE, BC | LOC: M RAD 10:55 | PROVIDERS: ATTEND Family Medicine | DX: N28.1 Cyst of kidney, acquired (principal) ==

== ENCOUNTER → 2021-12-09 | Outpatient (CLI) | payer MEDICARE, BC ==
[2021-12-09 13:15] LABS: HEMOGLOBIN A1c 6.7 %
== END ==
LOC: M WUC 09:05
PROVIDERS: ATTEND Nurse Practitioner Family
DX: E11.69 Type 2 diabetes mellitus with other specified complication (principal); I10 Essential (primary) hypertension

== ENCOUNTER → 2021-12-09 | Outpatient (CLI) | payer MEDICARE, BC ==
[2021-12-09 13:19] LABS: BLOOD UREA NITROGEN 18 MG/DL (7-18); CALCIUM LEVEL 9.1 MG/DL (8.8-10.2); CARBON DIOXIDE LEVEL 29 MEQ/L (21-32); CHLORIDE LEVEL 104 MEQ/L (98-107); CREATININE FOR GFR 1.24 MG/DL (0.70-1.30); GLOMERULAR FILTRATION RATE > 60.0 (>42); GLUCOSE, FASTING 259 MG/DL (70-100); MAGNESIUM LEVEL 2.3 MG/DL (1.8-2.4); POTASSIUM SERUM 4.5 MEQ/L (3.5-5.1); SODIUM LEVEL 138 MEQ/L (136-145)
== END ==
LOC: M WUC 09:08
PROVIDERS: ATTEND Physician Assistant
DX: I10 Essential (primary) hypertension (principal)

== ENCOUNTER → 2022-05-29 | Outpatient (CLI) | payer MEDICARE, BC ==
[~2022-05-29] MED LIST changes: -ATRO1OPD OD; +ATRO2DRO4 OD
== END ==
LOC: M RAD 09:27
PROVIDERS: ATTEND Nurse Practitioner Family
DX: Z12.2 Encounter for screening for malignant neoplasm of respiratory organs (principal); Z87.891 Personal history of nicotine dependence; I70.0 Atherosclerosis of aorta

== ENCOUNTER → 2022-06-11 | Outpatient (CLI) | payer MEDICARE, BC ==
[2022-06-11 10:25] LABS: BASO # 0.1 10^3/uL (0.0-0.2); EOS # 0.1 10^3/uL (0.0-0.5); EOS % 1.3 % (0.0-3.0); HEMATOCRIT 46.6 % (42.0-52.0); HEMOGLOBIN 15.3 g/dl (13.5-17.5); LYMPH # 2.6 10^3/uL (1.5-5.0); LYMPH % 32.8 % (24.0-44.0); MEAN CORPUSCULAR HEMOGLOBIN 29.8 pg (27.0-33.0); MEAN CORPUSCULAR HGB CONC 32.8 g/dl (32.0-36.5); MEAN CORPUSCULAR VOLUME 90.8 fl (80.0-96.0); MONO # 0.8 10^3/uL (0.0-0.8); MONO % 9.5 % (2.0-8.0); NEUTROPHILS # 4.3 10^3/uL (1.5-8.5); NEUTROPHILS % 54.5 % (36.0-66.0); PLATELET COUNT, AUTOMATED 250 10^3/uL (150-450); RED BLOOD COUNT 5.13 10^6/uL (4.30-6.10); WHITE BLOOD COUNT 7.9 10^3/uL (4.0-10.0)
[2022-06-11 10:50] LABS: CREATININE, URINE 89.4 MG/DL; MAU/CREAT RATIO 5.5 MCG/MG (0.0-30.0)
[2022-06-11 10:53] LABS: AST/SGOT 14 U/L (<34); BLOOD UREA NITROGEN 28 MG/DL (9-23); CALCIUM LEVEL 9.6 MG/DL (8.3-10.6); CARBON DIOXIDE LEVEL 31 MMOL/L (20-31); CHLORIDE LEVEL 101 MMOL/L (98-107); CREATININE FOR GFR 1.22 MG/DL (0.70-1.30); GLOMERULAR FILTRATION RATE > 60.0 (>42); GLUCOSE, FASTING 158 MG/DL (74-106); POTASSIUM SERUM 4.5 MMOL/L (3.5-5.1); SODIUM LEVEL 139 MMOL/L (136-145)
[2022-06-11 10:54] LABS: ALBUMIN 4.2 G/DL (3.2-5.2); ALKALINE PHOSPHATASE 85 U/L (46-116); ALT/SGPT 21 U/L (7.0-40); BILIRUBIN,TOTAL 1.3 MG/DL (0.3-1.2); CHOLESTEROL LEVEL 126 MG/DL (<200); CHOLESTEROL RISK RATIO 3.04 (<5); HDL CHOLESTEROL 41.4 MG/DL (>40); LDL CHOLESTEROL 19.4 MG/DL (<100); NON-HDL-C 84.6 MG/DL; TOTAL PROTEIN 7.3 G/DL (5.7-8.2); TRIGLYCERIDES LEVEL 326 MG/DL (<150)
== END ==
LOC: M WUC 08:04
PROVIDERS: ATTEND Nurse Practitioner Family
DX: E11.69 Type 2 diabetes mellitus with other specified complication (principal); E78.2 Mixed hyperlipidemia; I48.92 Unspecified atrial flutter

== ENCOUNTER → 2023-01-05 | Outpatient (REF) | payer MEDICARE, BC ==
[2023-01-05 19:51] LABS: CREATININE, URINE 72.4 MG/DL
== END ==
LOC: M LAB REF 17:10
PROVIDERS: ATTEND Nurse Practitioner Family
DX: E11.9 Type 2 diabetes mellitus without complications (principal)

== ENCOUNTER → 2023-04-24 | Outpatient (CLI) | payer MEDICARE, BC ==
[~2023-04-24] MED LIST changes: +CHLO125TA PO; +DULA3PEN SC; +ELIQ5TAB PO; +FARX1TAB3 PO; +LISI20TA33 PO; +SIMV40TA20 PO
== END ==
LOC: M PLAIMG 12:26
PROVIDERS: ATTEND Physician Assistant
DX: I08.0 Rheumatic disorders of both mitral and aortic valves (principal)

== ENCOUNTER 2023-05-21 11:00 | Day surgery (SDC) | payer MEDICARE, BC ==
[~2023-05-21] VITALS: Ht 172.7 cm; Wt 103.7 kg
[2023-05-21] MEDS: NS 1,000 ML IV ONE (11:21)
[2023-05-21] MEDS ORDERED: LIDOCAINE 2% 100MG/5ML SDV (FOR ANES.) As Ordered ONE (11:36)
[2023-05-21] MEDS ORDERED: propofoL 200 MG/20 ML VIAL As Ordered ONE (11:36)
[2023-05-21] MEDS ORDERED: ePHEDrine SULFATE 25 MG/5 ML(5MG/ML) SYRINGE As Ordered ONE (12:08)
[2023-05-21 12:12] VITALS: TEMP 97.1
[2023-05-21 12:32] VITALS: BP 126/60; O2SAT 97
== END 2023-05-21 12:37 | disposition home or self-care (01) ==
LOC: M OPP 11:00
PROVIDERS: ATTEND Surgery
DX: Z12.11 Encounter for screening for malignant neoplasm of colon (principal); Z86.010 Personal history of colon polyps; K64.2 Third degree hemorrhoids; D12.5 Benign neoplasm of sigmoid colon; K64.4 Residual hemorrhoidal skin tags; I10 Essential (primary) hypertension; E11.9 Type 2 diabetes mellitus without complications; I48.91 Unspecified atrial fibrillation; Z79.01 Long term (current) use of anticoagulants; Z79.02 Long term (current) use of antithrombotics/antiplatelets; Z79.82 Long term (current) use of aspirin; Z79.84 Long term (current) use of oral hypoglycemic drugs; Z79.899 Other long term (current) drug therapy

== ENCOUNTER → 2023-08-17 | Outpatient (CLI) | payer MEDICARE, BC ==
[2023-08-17 10:36] LABS: BASO # 0.1 10^3/uL (0.0-0.2); BASO % 1.1 % (0.0-1.0); EOS # 0.1 10^3/uL (0.0-0.5); EOS % 0.9 % (0.0-3.0); HEMATOCRIT 42.5 % (42.0-52.0); HEMOGLOBIN 13.8 g/dl (13.5-17.5); LYMPH # 2.8 10^3/uL (1.5-5.0); LYMPH % 31.5 % (24.0-44.0); MEAN CORPUSCULAR HEMOGLOBIN 29.6 pg (27.0-33.0); MEAN CORPUSCULAR HGB CONC 32.5 g/dl (32.0-36.5); MEAN CORPUSCULAR VOLUME 91.2 fl (80.0-96.0); MONO # 0.8 10^3/uL (0.0-0.8); MONO % 8.9 % (2.0-8.0); NEUTROPHILS % 56.6 % (36.0-66.0); PLATELET COUNT, AUTOMATED 229 10^3/uL (150-450); RED BLOOD COUNT 4.66 10^6/uL (4.30-6.10); WHITE BLOOD COUNT 8.8 10^3/uL (4.0-10.0)
[2023-08-17 11:13] LABS: ALBUMIN 4.2 G/DL (3.2-5.2); BILIRUBIN,TOTAL 1.2 MG/DL (0.3-1.2); CALCIUM LEVEL 9.6 MG/DL (8.3-10.6); CHOLESTEROL RISK RATIO 3.52 (<5); CREATININE FOR GFR 1.53 MG/DL (0.70-1.30); CREATININE, URINE 107.5 MG/DL; GLOMERULAR FILTRATION RATE 47.3 (>42); POTASSIUM SERUM 4.6 MMOL/L (3.5-5.1); TOTAL PROTEIN 7.2 G/DL (5.7-8.2)
[2023-08-17 11:14] LABS: MAU/CREAT RATIO 6.5 MCG/MG (0.0-30.0)
== END ==
LOC: M WUC 08:03
PROVIDERS: ATTEND Nurse Practitioner Family
DX: I11.9 Hypertensive heart disease without heart failure (principal); E78.2 Mixed hyperlipidemia; I48.92 Unspecified atrial flutter; E11.69 Type 2 diabetes mellitus with other specified complication

== ENCOUNTER → 2024-02-03 | Outpatient (CLI) | payer MEDICARE, BC ==
[~2024-02-03] MED LIST changes: +GABA-1172 PO; -GABA-282 PO
[2024-02-03 10:01] LABS: BASO # 0.1 10^3/uL (0.0-0.2); BASO % 1.7 % (0.0-1.0); EOS # 0.1 10^3/uL (0.0-0.5); EOS % 0.7 % (0.0-3.0); HEMATOCRIT 42.1 % (42.0-52.0); HEMOGLOBIN 13.8 g/dl (13.5-17.5); LYMPH # 2.4 10^3/uL (1.5-5.0); LYMPH % 31.9 % (24.0-44.0); MEAN CORPUSCULAR HEMOGLOBIN 29.9 pg (27.0-33.0); MEAN CORPUSCULAR HGB CONC 32.8 g/dl (32.0-36.5); MEAN CORPUSCULAR VOLUME 91.1 fl (80.0-96.0); MONO # 0.6 10^3/uL (0.0-0.8); MONO % 7.8 % (2.0-8.0); NEUTROPHILS # 4.2 10^3/uL (1.5-8.5); PLATELET COUNT, AUTOMATED 236 10^3/uL (150-450); RED BLOOD COUNT 4.62 10^6/uL (4.30-6.10); WHITE BLOOD COUNT 7.5 10^3/uL (4.0-10.0)
[2024-02-03 10:31] LABS: CALCIUM LEVEL 10.2 MG/DL (8.3-10.6); CREATININE FOR GFR 1.45 MG/DL (0.70-1.30); GLOMERULAR FILTRATION RATE 50.4 (>42); POTASSIUM SERUM 5.4 MMOL/L (3.5-5.1)
== END ==
LOC: M WUC 08:27
PROVIDERS: ATTEND Nurse Practitioner Family
DX: N18.31 Chronic kidney disease, stage 3a (principal)

== ENCOUNTER → 2024-11-08 | Outpatient (CLI) | payer MEDICARE, BC ==
[~2024-11-08] MED LIST changes: +AMLO-751 PO; -AMLO10TA PO
[2024-11-08 13:34] LABS: CALCIUM LEVEL 9.3 MG/DL (8.3-10.6); CARBON DIOXIDE LEVEL 29.0 MMOL/L (20-31); CHLORIDE LEVEL 103.0 MMOL/L (98-107); CREATININE FOR GFR 1.6 MG/DL (0.70-1.30); GLOMERULAR FILTRATION RATE 44.1 (>42); POTASSIUM SERUM 4.6 MMOL/L (3.5-5.1); SODIUM LEVEL 139.0 MMOL/L (136-145)
== END ==
LOC: M WUC 08:08
PROVIDERS: ATTEND Nurse Practitioner Family
DX: I10 Essential (primary) hypertension (principal)

== ENCOUNTER → 2025-01-28 | Outpatient (CLI) | payer MEDICARE, BC ==
[~2025-01-28] MED LIST changes: +CINN500C12 PO; +COFF1CAP3 PO; +DULA4.5P SQ; +KETO-204 PO; +LIDO1PAD TOP; +METH-1164 PO; +OMEG-28 PO; +THERTAB52 PO; +TYLE650T38 PO; +VITA200021 PO
== END ==
LOC: M RAD 12:41
PROVIDERS: ATTEND Physician Assistant
DX: J06.9 Acute upper respiratory infection, unspecified (principal); R05.9 Cough, unspecified; R06.02 Shortness of breath

== ENCOUNTER 2025-02-06 10:57 | Emergency (ER) | payer MEDICARE, BC ==
[~2025-02-06] VITALS: Ht 177.8 cm; Wt 104.6 kg
[~2025-02-06 10:57] MED LIST changes: -CINN500C12 PO; -COFF1CAP3 PO; -DULA4.5P SQ; -KETO-204 PO; -LIDO1PAD TOP; -METH-1164 PO; -OMEG-28 PO; -THERTAB52 PO; -TYLE650T38 PO; -VITA200021 PO
[2025-02-06 12:42] VITALS: TEMP 97.8
[2025-02-06] MEDS: KETOROLAC 30 MG/ML 1 ML VIAL IV ONE (13:18)
[2025-02-06] MEDS: PERCOCET 5MG/325MG TAB PO ONE (15:05)
[2025-02-06] MEDS ORDERED: OMEG-28 PO (15:23)
[2025-02-06] MEDS: LIDOCAINE 5% PATCH TD ONE (15:23)
[2025-02-06] MEDS ORDERED: CINN500C12 PO (15:23)
[2025-02-06] MEDS: NS 500 ML IV ONE (15:23)
[2025-02-06] MEDS ORDERED: DULA4.5P SQ (15:23)
[2025-02-06] MEDS ORDERED: COFF1CAP3 PO (15:23)
[2025-02-06] MEDS ORDERED: THERTAB52 PO (15:23)
[2025-02-06] MEDS ORDERED: VITA200021 PO (15:23)
[2025-02-06] MEDS ORDERED: HOME MED LIST COMPLETE! XX SCH (15:25)
[2025-02-06 21:00] VITALS: BP 99/51
[2025-02-06 21:01] VITALS: O2SAT 95
[2025-02-06] MEDS ORDERED: METH-1164 PO (21:11)
[2025-02-06] MEDS ORDERED: KETO-204 PO (21:11)
[2025-02-06] MEDS: OXYCODONE/APAP 5MG/325MG(HOME DOSE PACK) PO ONE (21:26)
[2025-02-07] MEDS ORDERED: LIDO1PAD TOP (10:30)
[2025-02-07] MEDS ORDERED: TYLE650T38 PO (10:30)
== END 2025-02-06 21:46 | disposition home or self-care (01) ==
LOC: M ED 10:57
DX: M62.830 Muscle spasm of back (principal); M51.370 Other intervertebral disc degeneration, lumbosacral region with discogenic back pain only; I10 Essential (primary) hypertension; Z79.1 Long term (current) use of non-steroidal anti-inflammatories (NSAID); Z79.01 Long term (current) use of anticoagulants; Z79.82 Long term (current) use of aspirin; Z79.4 Long term (current) use of insulin
CPT/HCPCS: 72110; 96361; 96374; 99285; J1885; J3360